=== PATIENT | male | born 1955 | race Caucasian/White ===

== ENCOUNTER → 2018-04-07 | Day surgery (SDC) | payer OTHER ==
--- NOTE | 2018-04-07 13:45 | Operative Report ---
Operative/Inv Procedure Report Surgery Date: 04/07/18 Name of Procedure: Robotic assisted laparoscopic bilateral inguinal hernia repair with mesh Pre-Operative Diagnosis: Right inguinal hernia Post-Operative Diagnosis: Bilateral inguinal hernia Estimated Blood Loss: less than 50ml Surgeon/Privacy Attorney: Jeff CASSIDY,Tim Carmichael/Stacy MARTINEZ Anesthesia: general endotracheal tube Implants: Pariet[employer] pro-professor of poultry science Operative/Procedure Note Note: After consent patient brought to the operating room laid supine. General anesthesia was obtained and his abdomen was prepped and draped. Skin was observed local anesthesia at [place] and a transverse incision made sharply. Access the peritoneum was gained percutaneously using an 8 mm optical trocar. Pneumoperitoneum was achieved. 2 more 8 mm ports were placed under direct vision in the transverse plane. The patient is placed in Trendelenburg, robot docked, targeted and instruments placed under direct vision. I then broke scrub and went to the console. The abdomen was explored. There were bilateral indirect hernias. I then developed a preperitoneal flap on the left side by taking down the peritoneum 6 cm superior to the defect. We then developed the preperitoneal plane with scissor cautery. Medially we dissected down to the pubic tubercle and freed up to Aubrey's ligament. There is a large indirect sac which was dissected free from the cord structures and reflected medially. We then turned attention to the right side. A flap was developed similarly. Dissection was carried forth to dissect out Aubrey's ligament, the pubis and iliopubic tract. There is a large indirect hernia composed of mostly fatty tissue and a small indirect sac. These were dissected free from the cord structures and reflected medially. Small amount of bleeding from the cord was encountered which was controlled with bipolar cautery. Once I was happy with the dissection, a 10 x 15 cm piece of parietex pro professor of poultry science was placed in the cavity. Was placed over the defects and unraveled and self adhered to the fascial tissues. It was performed on both sides. Once I was happy with the placement of mesh the peritoneal flaps were closed with a running absorbable 2-0V lock suture. Sutures then removed and passed off the field. The ports were delivered and passed off the field. Skin incisions closed with 4-0 Vicryl. Steri-Strips and sterile dressing are applied. Sponge and needle counts are correct. Findings: Bilateral indirect CC: Asgari MD,Aleksandra
== END ==
LOC: STS 01:08
DX: K40.20 Bilateral inguinal hernia, without obstruction or gangrene, not specified as recurrent (principal); F17.200 Nicotine dependence, unspecified, uncomplicated; E66.3 Overweight; Z68.31 Body mass index [BMI] 31.0-31.9, adult
CPT/HCPCS: 49650; 64488; S2900; C1781; J0131; J0690; J2250